=== PATIENT | female | born 1990 | race African-American/Black ===

== ENCOUNTER 2016-06-13 14:51 | Emergency (ER) | payer MEDICAID ==
[~2016-06-13] VITALS: Ht 170.2 cm; Wt 83.9 kg
[2016-06-13 14:59] VITALS: BP 125/71
== END 2016-06-13 16:09 | disposition home or self-care (01) ==
LOC: ER 14:51
DX: T16.1XXA Foreign body in right ear, initial encounter (principal); F17.210 Nicotine dependence, cigarettes, uncomplicated; F12.10 Cannabis abuse, uncomplicated; W45.8XXA Other foreign body or object entering through skin, initial encounter; Y93.89 Activity, other specified; Y99.8 Other external cause status; Y92.89 Other specified places as the place of occurrence of the external cause
CPT/HCPCS: 69200

== ENCOUNTER 2016-08-24 18:39 | Emergency (ER) | payer MEDICAID ==
[~2016-08-24] VITALS: Ht 167.6 cm; Wt 83.9 kg
[2016-08-24 18:46] VITALS: BP 129/71
== END 2016-08-24 22:16 | disposition left against medical advice (07) ==
LOC: ER 18:44
DX: N89.8 Other specified noninflammatory disorders of vagina (principal); Z53.21 Procedure and treatment not carried out due to patient leaving prior to being seen by health care provider
CPT/HCPCS: 36415; 84702